=== PATIENT | male | born 1970 | race Caucasian/White ===

== ENCOUNTER 2017-10-17 16:05 | Emergency (ER) | payer BC ==
--- NOTE | 2017-10-17 16:13 | UC ---
Respiratory Complaint HPI - HPI Summary HPI Summary: 47 y/o male presents to the urgent care c/o persistent productive cough for the past 20 days. He feels SOB with mild wheezing for the past 2 days. Pt states He was here on 09/28/2017 Dx with Bronchits Rx Z-ryder , prednisone PO. He was feeling better, but cough has not completely resolved. Pt denies fever, chest pain, abdominal pain, N/V/D. He started to use his inhaler last night. - History of Current Complaint Stated Complaint: COUGH Time Seen by Provider: 10/17/17 16:11 Hx Obtained From: Patient Onset/Duration: Gradual Onset, Lasting Weeks - 3 weeks, Still Present, Worse Since - 2 days Severity Initially: Mild Severity Currently: Mild Pain Intensity: 0 Pain Scale Used: 0-10 Numeric Character: Cough: Productive - with clear phlegm Aggravating Factors: Deep Breaths, Recumbent Position Alleviating Factors: Bronchodilator Associated Signs And Symptoms: Positive: Dyspnea, Wheezing - mild, Nasal Congestion. Negative: Fever, Chills, Pleuritic Chest Pain - Risk Factors Pulmonary Embolism Risk Factors: Negative Cardiac Risk Factors: Negative Pseudomonas Risk Factors: Negative Tuberculosis Risk Factors: Negative - Allergies/Home Medications Allergies/Adverse Reactions: Allergies Allergy/AdvReac Type Severity Reaction Status Date / Time No Known Allergies Allergy Verified 10/17/17 16:24 PMH/Surg Hx/FS Hx/Imm Hx Previously Healthy: Yes Respiratory History: Asthma Other Respiratory History: Sleep apnea - Surgical History Surgical History: None - Family History Known Family History: Positive: Respiratory Disease - Asthma - Social History Occupation: Employed Full-time Lives: With Family Alcohol Use: None Substance Use Type: None Smoking Status (MU): Former Smoker When Did the Patient Quit Smoking/Using Tobacco: 15 years ago - Immunization History Most Recent Influenza Vaccination: not this season Review of Systems Constitutional: Negative Skin: Negative Eyes: Negative ENT: Nasal Discharge Respiratory: Shortness Of Breath, Cough - dry, Other - wheezing Cardiovascular: Negative Gastrointestinal: Negative Genitourinary: Negative Motor: Negative Neurovascular: Negative Musculoskeletal: Negative Neurological: Negative Psychological: Negative Is Patient Immunocompromised?: No All Other Systems Reviewed And Are Negative: Yes Physical Exam Triage Information Reviewed: Yes - Additional Comments Vital Signs Reviewed: Yes General: well developed, well nourished male sitting in the examining table w/o any apparent distress Eyes: Positive: Conjunctiva Clear - PERRLA, EOMI, fundi grossly normal ENT: Positive: Normal ENT inspection, Hearing grossly normal, Pharynx normal, Nasal congestion - edematous and erythematous nasal mucosa, Nasal drainage - clear drainage, TMs normal. Negative: Tonsillar swelling, Tonsillar exudate Neck: Positive: Supple, Nontender, No Lymphadenopathy Respiratory: no orthopnea or dyspnea. Able to speak in full sentences, no retractions or accessory muscle use, no tripod position, stridor, or head bobbing. CTA bilaterally, mild wheezing in the left upper posterior lung , no rhonchi, rales or crackles Cardiovascular: Positive: RRR, No Murmur, Pulses Normal, Brisk Capillary Refill Abdomen Description: Positive: Nontender, No Organomegaly, Soft. Negative: CVA Tenderness (R), CVA Tenderness (L) Bowel Sounds: Positive: Present Musculoskeletal Exam: Normal Musculoskeletal: Positive: Strength Intact, ROM Intact, No Edema Neurological Exam: Normal Psychological Exam: Normal Skin Exam: Normal Respiratory Course/Dx - Course Course Of Treatment: 47 y/o male presents to the urgent care c/o persistent productive cough for the past 20 days. He feels SOB with mild wheezing for the past 2 days. Pt states He was here on 09/28/2017 Dx with Bronchits Rx Z-ryder , prednisone PO. He was feeling better, but cough has not completely resolved. Pt denies fever, chest pain, abdominal pain, N/V/D. He started to use his inhaler last night. Hx obtained. Pt with the mild wheeaing in the left posterior upper lung. O2sat: 98%. Pt given Prednisone PO and albuterol neb treatment at the clinic. He tolerated well medication and lugns cleared. Pt Rx Albuterol, Prednisone taper dose, Tessalon tabs for cough. Pt's BP is elevated today, advised to decrease salt in diet, monitor BP and f/u with PCP if it continues to be elevated. Patient recommended to return to the clinic or go to the nearest ER if symptoms do not improve or worsen. Patient understood and agree with plan of care. - Differential Dx/Diagnosis Differential Diagnosis/HQI/PQRI: Asthma, Bronchitis, Influenza, Laryngitis, Sinusitis Provider Diagnoses: 1- Asthma exacerbation. 2-Cough. 3- Elevated BP w/o Hx of HTN Discharge - Discharge Plan Condition: Stable Disposition: HOME Prescriptions: Albuterol 2.5MG/3ML (0.083%)* [Ventolin 2.5 MG/3 ML NEB.JOSE*] 2.5 mg INH Q6H PRN #1 ryder PRN Reason: Wheezing Benzonatate CAP* [Tessalon 100 MG CAP*] 100 mg PO TID PRN #15 cap PRN Reason: Cough predniSONE TAB* [Deltasone TAB*] 20 mg PO DAILY #8 tab Patient Education Materials: Asthma (ED), Low Sodium Diet (ED), Bronchospasm ( ED) Referrals: COSMO Ahn [Primary Care Provider] - 1 Week Additional Instructions: 1-Take Prednisone PO as directed continue using the albuterol inhaler and do the nebulizers treatments at night time to alleviate bronchospasm. Increase fluid intake, eat well and rest 2- If symptoms do not improve or worsen or your develop SOB with fever and severe wheezing please go immediately to the ER further evaluation and treatment. 3- F/u with your PCP in 1 week if not improvement of symptoms for further management on your Asthma. 4- Your BP is elevated today, please decrease salt in your diet, monitor BP and if it continues to be elevated f/u with your PCP
[2017-10-17 16:24] VITALS: BP 141/78
[2017-10-17] MEDS ORDERED: Albuterol 2.5 MG/3 ML NEB.SOL* (0.083%) INH ONE (16:40)
[2017-10-17] MEDS ORDERED: predniSONE TAB* 20 MG PO ONE (16:41)
== END 2017-10-17 17:05 | disposition home or self-care (01) ==
LOC: UCCORT 16:05
DX: J45.901 Unspecified asthma with (acute) exacerbation (principal); R05 Cough; R03.0 Elevated blood-pressure reading, without diagnosis of hypertension; Z87.891 Personal history of nicotine dependence
CPT/HCPCS: 99212; G0463; J7512

== ENCOUNTER 2019-03-18 17:35 | Emergency (ER) | payer BC ==
[2019-03-18 18:26] VITALS: BP 139/74
--- NOTE | 2019-03-18 18:33 | UC ---
Respiratory Complaint HPI - HPI Summary HPI Summary: ONSET TWO WEEKS AGO WITH SORE THROAT , SINUS PRESSURE, WHICH HAS LESSENED. FOR THE PAST WEEK HAS FELT SOB ON EXERSION, WHEEZING, COUGHING. USED ALBUTEROL INHALER WITH LITTLE RELIEF. DENIES CHEST PAIN . DID FEEL FEVERISH TODAY. PT HAS HX OF ASTHMA AND SLEEP APNEA. - History of Current Complaint Chief Complaint: UCRespiratory Stated Complaint: COUGH,CONGESTION Time Seen by Provider: 03/18/19 18:20 Hx Obtained From: Patient Onset/Duration: Gradual Onset, Lasting Weeks Timing: Constant Severity Initially: Mild Severity Currently: Mild Pain Intensity: 0 Character: Cough: Nonproductive Aggravating Factors: Deep Breaths Alleviating Factors: Bronchodilator - Allergies/Home Medications Allergies/Adverse Reactions: Allergies Allergy/AdvReac Type Severity Reaction Status Date / Time No Known Allergies Allergy Verified 03/18/19 18:14 Home Medications: Home Medications Anxiety Med ? Name DAILY 03/18/19 [History] Montelukast Sodium TAB* [Singulair TAB*] 10 mg PO BEDTIME 03/18/19 [History Confirmed 03/18/19] lamoTRIgine [Lamotrigine] 25 mg PO DAILY 03/18/19 [History Confirmed 03/18/19] PMH/Surg Hx/FS Hx/Imm Hx - Surgical History Surgical History: Yes Surgery Procedure, Year, and Place: ANKLE REPAIR FOR FX - Family History Known Family History: Positive: None, Respiratory Disease - Asthma - Social History Alcohol Use: None Substance Use Type: None Smoking Status (MU): Former Smoker When Did the Patient Quit Smoking/Using Tobacco: 15 years ago - Immunization History Most Recent Influenza Vaccination: not this season Review of Systems All Other Systems Reviewed And Are Negative: Yes Constitutional: Positive: Negative Skin: Positive: Negative Eyes: Positive: Negative ENT: Positive: Sore Throat Respiratory: Positive: Shortness Of Breath Cardiovascular: Positive: Negative Gastrointestinal: Positive: Negative Genitourinary: Positive: Negative Motor: Positive: Negative Neurovascular: Positive: Negative Musculoskeletal: Positive: Negative Neurological: Positive: Negative Psychological: Positive: Negative Is Patient Immunocompromised?: No Physical Exam Triage Information Reviewed: Yes Appearance: No Pain Distress, Well-Nourished, Ill-Appearing Vital Signs: Initial Vital Signs Temp 98.2 F 03/18/19 18:18 Pulse 57 03/18/19 18:18 Resp 20 03/18/19 18:18 BP 139/74 03/18/19 18:18 Pulse Ox 98 03/18/19 18:18 Vital Signs Reviewed: Yes Eye Exam: Normal ENT: Positive: Pharyngeal erythema, TMs normal Dental Exam: Normal Neck exam: Normal Respiratory Exam: Normal Respiratory: Positive: Chest non-tender, Normal breath sounds, No respiratory distress, Rhonchi, Stridor, Inspiration Cardiovascular Exam: Normal Cardiovascular: Positive: RRR, No Murmur, Pulses Normal Bowel Sounds: Positive: Present Musculoskeletal Exam: Normal Neurological Exam: Normal Psychological Exam: Normal Skin Exam: Normal Respiratory Course/Dx - Course Course Of Treatment: hx obtained, exam performed, meds reviewed, treated for bronchospasm - Differential Dx/Diagnosis Differential Diagnosis/HQI/PQRI: Asthma, Bronchitis, Laryngitis Provider Diagnosis: Asthma, Bronchospasm Discharge - Sign-Out/Discharge Documenting (check all that apply): Patient Departure All imaging exams completed and their final reports reviewed: No Studies - Discharge Plan Condition: Stable Disposition: HOME Prescriptions: Albuterol 2.5MG/3ML (0.083%)* [Ventolin 2.5 MG/3 ML NEB.JOSE*] 2.5 mg INH Q6H PRN #1 ryder PRN Reason: Wheezing predniSONE [Prednisone 20 MG TAB] 40 mg PO DAILY #10 tablet Patient Education Materials: Bronchospasm (ED), Asthma (ED) Referrals: Kaye Garcia [Primary Care Provider] - Additional Instructions: 1. use the albuterol nebulizer twice a day for the next few days 2. Use the prednisone as directed 3. Salt water gargles and ibuprofen as needed. 4. Follow up if not improving with treatment - Billing Disposition and Condition Condition: STABLE Disposition: Home
== END 2019-03-18 18:49 | disposition home or self-care (01) ==
LOC: UCCORT 17:35
DX: J45.909 Unspecified asthma, uncomplicated (principal); Z87.891 Personal history of nicotine dependence
CPT/HCPCS: 99212; G0463